=== PATIENT | male | born 1990 | race Caucasian/White ===

== ENCOUNTER 2020-08-09 22:05 | Emergency (ER) | payer BC ==
[2020-08-09 22:14] VITALS: BP 120/65; PULSE 109
[2020-08-09] MEDS ORDERED: HYDROmorphone 1 MG/ML Syringe SUBCUT ONE ×2 (22:22→22:44)
[2020-08-09] MEDS ORDERED: Orphenadrine 60 MG/2 ML Inj IM ONE (22:22)
[2020-08-09] MEDS ORDERED: Take Home: Acetaminophen/HYDROcodone 325-5 MG, 5 Tab Pack PO ONE (22:27)
[2020-08-09] MEDS ORDERED: Take Home: Cyclobenzaprine 10 MG Tab, 4 Tab Pack PO ONE (22:27)
--- NOTE | 2020-08-09 22:49 | EDM.PDOC ---
ED HPI GENERAL MEDICAL PROBLEM - General Chief Complaint: Back Pain or Injury Stated Complaint: BACK PAIN Time Seen by Provider: 08/09/20 22:20 Source of Information: Reports: Patient History Limitations: Reports: No Limitations - History of Present Illness INITIAL COMMENTS - FREE TEXT/NARRATIVE: Pt. presents to ER with complaints of low back pain with radiation into his anterior thighs. Denies any saddle anesthesia or incontinence. Pt. states that the discomfort started this AM when he woke from sleep. Denies any injury to the area. He states that he has not done any lifting. Denies any fever or chills. Pt. states that he has had low back pain in this area once in the past that necessitated being seen by a healthcare provider. Pt. did PT and subsequently recovered without sequelae. He state that he has not had an MRI or other imaging of this area. Onset: Today Onset Date: 08/09/20 Location: Reports: Back Lower Back Pain Score (Numeric/FACES): 8 - Related Data Allergies Allergy/AdvReac Type Severity Reaction Status Date / Time Sulfa (Sulfonamide Allergy Cannot Verified 08/09/20 22:11 Antibiotics) Remember Home Meds: Home Meds . [No Known Home Meds] 07/07/14 [History] Past Medical History - Past Health History Medical/Surgical History: Denies Medical/Surgical History - Past Surgical History HEENT Surgical History: Reports: Adenoidectomy, Myringotomy w Tube(s), Tonsillectomy Social & Family History - Tobacco Use Tobacco Use Status *Q: Former Tobacco User Used Tobacco, but Quit: Yes Month/Year Tobacco Last Used: 2018 - Alcohol Use Days Per Week of Alcohol Use: 1 Number of Drinks Per Day: 3 Total Drinks Per Week: 3 - Recreational Drug Use Recreational Drug Use: No ED ROS GENERAL - Review of Systems Review Of Systems: See Below Musculoskeletal: Reports: Back Pain, Leg Pain (anterior upper thigh pain) Skin: Reports: No Symptoms Neurological: Denies: Paresthesia, Tingling ED EXAM, GENERAL - Physical Exam Exam: See Below Exam Limited By: No Limitations General Appearance: Alert, WD/WN, No Apparent Distress Back Exam: Muscle Spasm, Paraspinal Tenderness, Other (decreased ROM, muscle spasm noted throughout lumbar region.). No: Full Range of Motion Neurological: Alert, Oriented, CN II-XII Intact, Normal Cognition, Normal Gait, Normal Reflexes (2+), No Motor/Sensory Deficits Psychiatric: Normal Affect, Normal Mood Skin Exam: Warm, Dry, Intact, Normal Color, No Rash Course - Vital Signs Last Recorded V/S: Last Vital Signs Temp 36.8 C 08/09/20 22:12 Pulse 109 H 08/09/20 22:12 Resp 16 08/09/20 22:12 BP 120/65 08/09/20 22:12 Pulse Ox 97 08/09/20 22:12 - Orders/Labs/Meds Meds: Medications Discontinued Medications Generic Name Dose Route Start Last Admin Trade Name Sumit PRN Reason Stop Dose Admin Hydrocodone Bitart/Acetaminophen 1 packet 08/09/20 22:27 Take Home: Acetam/Hydrocodon 325-5 Mg, 5 Pack PO 08/09/20 22:28 ONETIME ONE Cyclobenzaprine HCl 1 packet 08/09/20 22:27 Take Home: Cyclobenzaprine 10 Mg, 4 Tab Pack PO 08/09/20 22:28 ONETIME ONE Hydromorphone HCl 1 mg 08/09/20 22:22 Dilaudid SUBCUT 08/09/20 22:23 ONETIME ONE Orphenadrine Citrate 60 mg 08/09/20 22:22 Norflex IM 08/09/20 22:23 ONETIME ONE Departure - Departure Time of Disposition: 22:51 Disposition: Home, Self-Care 01 Clinical Impression: Lumbar back pain with radiculopathy affecting lower extremity - Discharge Information Instructions: Acetaminophen; Hydrocodone tablets or capsules, Cyclobenzaprine tablets, Acute Back Pain, Adult Forms: ED Department Discharge Additional Instructions: Weston 5/325mg 1 every 4-6 hours as needed for pain Flexeril 10mg 1 three times a day as needed for pain Continue with ibuprofen as well You will be contacted regarding an appointment with physical therapy Recheck in clinic in 10-14 days, sooner if not gradually improving Sepsis Event Note (ED) - Evaluation Sepsis Screening Result: No Definite Risk - Focused Exam Vital Signs: Vital Signs Temp Pulse Resp BP Pulse Ox 08/09/20 22:12 36.8 C 109 H 16 120/65 97 - Problem List Review Problem List Initiated/Reviewed/Updated: Yes - Assessment/Plan Plan: Weston 5/325mg 1 every 4-6 hours as needed for pain Flexeril 10mg 1 three times a day as needed for pain Continue with ibuprofen as well You will be contacted regarding an appointment with physical therapy Recheck in clinic in 10-14 days, sooner if not gradually improving
== END 2020-08-09 22:58 | disposition home or self-care (01) ==
LOC: VM.ED 22:05
DX: M54.16 Radiculopathy, lumbar region (principal); Z87.891 Personal history of nicotine dependence; Z88.2 Allergy status to sulfonamides
CPT/HCPCS: 96372; 99283; A9270; J1170; J2360